=== PATIENT | male | born 1985 | race Caucasian/White ===

== ENCOUNTER 2018-12-09 20:54 | Emergency (ER) | payer SELFPAY ==
[2018-12-09 21:07] VITALS: BP 145/98; PULSE 70; TEMP 97.5; O2SAT 100
--- NOTE | 2018-12-09 21:19 | C.PDOC ---
History Of Present Illness 33 y/o male with no significant PMH presents to the ED c/o right lower back pain x 2 weeks. Pain is sharp, starts in the right lower back and travels down the right buttock to his lower leg. Associated intermittent numbness and paresthesias of the right leg. Worse with sitting for long periods of time. Pt has had this pain before approximately 4 years ago that resolved on its own. Seen by the urgent care today who recommended coming to ED for imaging and pain medication. Has not taken any medications for pain. Pt works as a company manager. Denies trauma/injury, fevers, chills, saddle anesthesia, bowel/bladder incontinence, weakness, abdominal pain, N/V/D, urinary symptoms, any other associated symptoms. Time Seen by Provider: 12/09/18 21:05 Chief Complaint (Nursing): Hip Pain History Per: Patient History/Exam Limitations: no limitations Onset/Duration Of Symptoms: Days Current Symptoms Are (Timing): Still Present Severity: Moderate Past Medical History Reviewed: Historical Data, Nursing Documentation, Vital Signs Vital Signs: Last Vital Signs Temp 97.5 F L 12/09/18 21:07 Pulse 70 12/09/18 21:07 Resp 16 12/09/18 21:07 BP 145/98 H 12/09/18 21:07 Pulse Ox 100 12/09/18 21:07 - Medical History PMH: No Chronic Diseases Family History: States: No Known Family Hx - Social History Hx Alcohol Use: No Hx Substance Use: No Review Of Systems Except As Marked, All Systems Reviewed And Found Negative. Constitutional: Negative for: Fever, Chills Eyes: Negative for: Vision Change ENT: Negative for: Nose Congestion, Throat Pain Cardiovascular: Negative for: Chest Pain, Palpitations, Light Headedness Respiratory: Negative for: Cough, Shortness of Breath Gastrointestinal: Negative for: Nausea, Vomiting, Abdominal Pain, Diarrhea, Constipation Genitourinary: Negative for: Dysuria, Frequency Musculoskeletal: Positive for: Back Pain (right lower), Leg Pain (right) Skin: Negative for: Rash, Bruising Neurological: Negative for: Weakness, Numbness, Altered Mental Status, Headache, Dizziness Physical Exam - Physical Exam Appears: Well, Non-toxic, No Acute Distress Skin: Normal Color, Warm, Dry Head: Atraumatic, Normacephalic, No Tenderness Eye(s): bilateral: Normal Inspection, PERRL, EOMI Nose: Normal Oral Mucosa: Moist Throat: Normal Neck: Normal, Normal ROM, No Midline Cervical Tenderness, No Paracervical Tenderness, Supple Cardiovascular: Rhythm Regular Respiratory: Normal Breath Sounds Gastrointestinal/Abdominal: Soft, No Tenderness Back: Normal Inspection, No CVA Tenderness, No Vertebral Tenderness, Paraspinal Tenderness (right lumbar), Straight Leg Raising (positive right side at 30 degrees) Extremity: Normal ROM, No Tenderness, No Pedal Edema, Capillary Refill (<2s), No Deformity, No Swelling Extremity: Bilateral: Atraumatic, No Pedal Edema, Normal Color And Temperature, Normal ROM Neurological/Psych: Oriented x3, Normal Speech, Normal Cognition, Normal Motor, Normal Sensation Disoriented To: Person ED Course And Treatment O2 Sat by Pulse Oximetry: 100 Medical Decision Making Medical Decision Making: Initial Plan: * Lumbar spine XR * Right hip XR * Toradol * Valium Xrays read as no acute pathology by me. Patient reports decreased pain after medications. Will discharge home with prescriptions for flexeril, medrol dosepack, and ibuprofen with instructions to followup with orthopedics. Pt states he will followup as instructed Diagnostic testing results and plan of care discussed with patient. Strict instructions given regarding prescription use, importance of followup, and signs/symptoms to return to ER including weakness, saddle anesthesia. bowel/bladder incontinence or any other new/worsening symptoms. Pt verbalized understanding of discussion. Patient is A&Ox3, ambulating with steady gait, with vital signs stable for discharge. Disposition - Disposition Referrals: [facility] [Outside] [facility] [place] [Outside] Lilian eSlf MD [Staff Provider] - Disposition: HOME/ ROUTINE Disposition Time: 22:15 Condition: GOOD Additional Instructions: Ibuprofen every 8 hours with food as needed for pain Flexeril every 12 hours as needed for pain, do not take before working or driving Medrol dose pack [steroids] as prescribed Followup with orthopedics within 2 days Followup with primary doctor or clinic within 2 days Return to ER with any new/worsening symptoms Prescriptions: Cyclobenzaprine [Cyclobenzaprine HCl] 10 mg PO Q12H PRN #10 tab PRN Reason: Muscle Spasm Ibuprofen [Motrin Tab] 600 mg PO Q8H PRN #30 tab PRN Reason: Pain, Moderate (4-7) Methylprednisolone [Medrol Dose Pack (21 tabs)] 4 mg PO DAILY #21 mg Instructions: Low Back Pain in Adults, Sciatica (DC), Sciatica Exercises, Back Flexion Stretching Exercises Forms: General Discharge Instructions, [facility] (Cam[place]onian), Work Excuse - Clinical Impression Clinical Impression: Sciatic pain, Low back pain
[2018-12-09 22:26] VITALS: RESP 20
--- NOTE | 2018-12-10 09:12 | RAD ---
Date of service: 12/09/2018 PROCEDURE: Radiographs of the Lumbar Spine. HISTORY: lower back pain COMPARISON: No prior. FINDINGS: BONES: Normal alignment. No listhesis. No fracture. Trace rightward convexity of the inferior lumbosacral spine junction noted-possibly positional. Small posterior spurring off the inferior L4 endplate- DISC SPACES: No marked disc space narrowing. Probably diffuse disc space narrowing posteriorly from L1-2 through including L4-5. OTHER FINDINGS: Mild stool retention. IMPRESSION: Normal alignment. No listhesis. No fracture. Trace rightward convexity of the inferior lumbosacral spine junction noted-possibly positional. Small spur posterior and inferior aspect L4 vertebral body No preliminary written ER impression is available at this time.
--- NOTE | 2018-12-10 09:19 | RAD ---
Date of service: 12/09/2018 PROCEDURE: HISTORY: right hip pain COMPARISON: None TECHNIQUE: AP pelvis and frog's leg view. FINDINGS: No fracture or dislocation or lytic lesion seen. Bilateral mild superolateral hip joint space narrowing with bilateral superolateral acetabular mild spurring. Some trace hypertrophic changes along the inferior aspect of each SI joint noted. Otherwise SI joints are unremarkable. Symphysis pubis unremarkable appearing IMPRESSION: Mild bilateral hip joint osteoarthrosis findings. No fracture or lytic lesion seen. Other findings as above. No preliminary written ER impression is available at this time.
== END 2018-12-09 22:25 | disposition home or self-care (01) ==
LOC: C.ER 20:54
DX: M54.40 Lumbago with sciatica, unspecified side (principal)
CPT/HCPCS: 72100; 73502; 96372; 99284; J1885